=== PATIENT | male | born 1960 | race African-American/Black ===

== ENCOUNTER → 2016-05-06 | Outpatient (CLI) | payer OTHER ==
--- NOTE | 2016-05-06 09:48 | RAD ---
EXAM DESCRIPTION: Chest,2 Views CLINICAL HISTORY: 55 years,Male,R/O TB COMPARISON: April 12, 2013 FINDINGS: There are no consolidations. No effusions. No pneumothoraces. No nodules. Bony elements unremarkable for age. IMPRESSION: Unremarkable chest for age stable Electronically signed by: Suman Feliciano MD 05/06/2016 9:48 AM CDT
== END | disposition home or self-care (01) ==
LOC: RAD 09:05
DX: R76.11 Nonspecific reaction to tuberculin skin test without active tuberculosis (principal)

== ENCOUNTER 2016-07-06 11:13 | Emergency (ER) | payer SELFPAY ==
[2016-07-06 11:31] VITALS: TEMP 97.6
--- NOTE | 2016-07-06 11:41 | ED.PDOC ---
History of Present Illness - General Chief Complaint: Dental/Mouth Stated Complaint: dental pain Time Seen by Provider: 07/06/16 11:39 Source: patient Exam Limitations: no limitations - History of Present Illness Initial Comments: Deuce Henry 55 y/o male stated that his upper part of gums hurting the last 3 days from his bad teeth.No history of trauma,pain on chewing,no dysphagia. Timing/Duration: other - 3 adys ago Severity: moderate EENT Location: dental Prearrival Treatment: no prearrival treatment Improving Factors: nothing Worsening Factors: eating Associated Symptoms: tooth pain Allergies/Adverse Reactions: Allergies NO KNOWN ALLERGY Allergy (Verified 07/06/16 11:31) Home Medications: Ambulatory Orders Docusate Sodium [Colace Cap] 100 mg PO BID #30 cap 09/23/14 Ferrous Sulfate 325 mg PO BID #30 tab 09/23/14 Acetaminophen W/ Codeine [Tylenol W/ CODEINE #3] 1 - 2 ea PO Q4H PRN #20 Cyclobenzaprine HCl [Flexeril] 10 mg PO TID #15 tab 10/29/14 Naproxen [Naprosyn] 500 mg PO BID #20 tab 10/29/14 Acetamin W/Cod #3 Tab [Tylenol w/CODEINE #3] 1 ea PO Q6HRS PRN #10 tab 07/06/16 Clindamycin HCl 300 mg PO BID #30 cap 07/06/16 Review of Systems - Review of Systems Constitutional: States: no symptoms reported EENTM: States: see HPI Respiratory: States: no symptoms reported Cardiology: States: no symptoms reported Gastrointestinal/Abdominal: States: no symptoms reported Genitourinary: States: no symptoms reported Musculoskeletal: States: no symptoms reported Skin: States: no symptoms reported Neurological: States: no symptoms reported Endocrine: States: no symptoms reported Hematologic/Lymphatic: States: no symptoms reported Past Medical History (General) - Patient Medical History Hx Seizures: No Hx Stroke: No Hx Dementia: No Hx Asthma: No Hx of COPD: No Hx Cardiac Disorders: No Hx Congestive Heart Failure: No Hx Pacemaker: No Hx Hypertension: Yes Hx Thyroid Disease: No Hx Diabetes: No Hx Gastroesophageal Reflux: No Hx Renal Disease: No Surgical History: other - hernia repair in childhood - Vaccination History Hx Tetanus, Diphtheria Vaccination: Yes Hx Influenza Vaccination: No Hx Pneumococcal Vaccination: No - Social History Hx Tobacco Use: Yes Hx Alcohol Use: Yes Hx Substance Use: Yes - occasional marijuana Hx Substance Use Treatment: No Hx Depression: No - Activities of Daily Living Patient Lives Alone: No - family Hospice Agency (if applicable):: None - Female History Patient is a Female of Child Bearing Age (10 -59 yrs old): No Family Medical History - Family History Mother Family History: No Known Living Status: Still Living Hx Family Hypertension: Yes - parents Hx Cardiac Disease: Yes - parents Hx Family;Other: mom-Brain aneurysm Physical Exam - Physical Exam General Appearance: Alert, Anxious, No apparent distress Eye Exam: bilateral normal Ear Exam: bilateral ear: auricle normal, canal normal, TM normal Nasal Exam: normal inspection Throat Exam: pharynx normal, dental tenderness - left upper molars with dental decays Neck: non-tender, full range of motion, supple Cardiovascular/Respiratory: regular rate, rhythm, no M/R/G, normal peripheral pulses, normal breath sounds Abdominal Exam: non-tender, no organomegaly Neurologic: no motor/sensory deficits, alert, normal mood/affect, oriented x 3 Skin Exam: normal color, warm/dry Departure - Departure Clinical Impression: Pain due to dental caries, Complex dental caries Time of Disposition: 11:59 Disposition: Discharge to Home or Self Care Condition: Fair Departure Forms: ED Discharge - Pt. Copy, Patient Portal Self Enrollment Instructions: DI for Tooth Decay, DI for Dental Pain Diet: other - SOFT DIET ONLY UNTIL BETTER Prescriptions: Acetamin W/Cod #3 Tab [Tylenol w/CODEINE #3] 1 ea PO Q6HRS PRN #10 tab PRN Reason: Pain Clindamycin HCl 300 mg PO BID #30 cap Home Medications: Ambulatory Orders Docusate Sodium [Colace Cap] 100 mg PO BID #30 cap 09/23/14 Ferrous Sulfate 325 mg PO BID #30 tab 09/23/14 Acetaminophen W/ Codeine [Tylenol W/ CODEINE #3] 1 - 2 ea PO Q4H PRN #20 Cyclobenzaprine HCl [Flexeril] 10 mg PO TID #15 tab 10/29/14 Naproxen [Naprosyn] 500 mg PO BID #20 tab 10/29/14 Acetamin W/Cod #3 Tab [Tylenol w/CODEINE #3] 1 ea PO Q6HRS PRN #10 tab 07/06/16 Clindamycin HCl 300 mg PO BID #30 cap 07/06/16 Additional Instructions: MAKE AN APPOINTMENT WITH YOU DENTIST SOON POSSIBLE CALL FOR APPOINTMENT
[2016-07-06] MEDS ORDERED: CLINDAMYCIN PHOSPHATE 150 MG/ML VIAL IM ONE (11:55)
[2016-07-06] MEDS ORDERED: CLINDAMYCIN HCL CAP 150 MG CAP PO ONE (11:55)
[2016-07-06] MEDS ORDERED: HYDROcodone 10MG/APAP 325MG 1 EA TAB PO ONE (11:55)
[2016-07-06] MEDS ORDERED: TETANUS,DIPHTHERIA,PERTUSSIS 1 EA SYG IM ONE (11:55)
[2016-07-06 12:27] VITALS: BP 139/85; O2SAT 95
== END 2016-07-06 12:27 | disposition home or self-care (01) ==
LOC: ER 11:13
DX: K02.9 Dental caries, unspecified (principal); I10 Essential (primary) hypertension; Z23 Encounter for immunization; Z87.891 Personal history of nicotine dependence; Z79.899 Other long term (current) drug therapy

== ENCOUNTER → 2018-09-13 | Outpatient (CLI) | payer OTHER ==
--- NOTE | 2018-09-14 10:06 | RAD ---
EXAM DESCRIPTION: Chest,2 Views CLINICAL HISTORY: TB SCREEN COMPARISON: 05/06/2016 TECHNIQUE: PA/lateral FINDINGS: The lungs are clear. No focal consolidation, significant pneumothorax or pleural effusion. The heart is normal in size. No acute osseous abnormality. IMPRESSION: 1. No acute cardiopulmonary process. Electronically signed by: Efren Swan DO 09/14/2018 10:04 AM CDT
== END ==
LOC: RAD 13:28
PROVIDERS: ATTEND Nurse Practitioner Family
DX: R76.11 Nonspecific reaction to tuberculin skin test without active tuberculosis (principal)

== ENCOUNTER 2019-08-26 10:49 | Emergency (ER) | payer SELFPAY ==
[2019-08-26 11:19] VITALS: BP 117/73; TEMP 98.7; O2SAT 98
--- NOTE | 2019-08-26 11:21 | ED.PDOC ---
History of Present Illness - General Chief Complaint: Eye Problems Stated Complaint: scatching pain right eye Time Seen by Provider: 08/26/19 11:18 Source: patient, family Exam Limitations: no limitations - History of Present Illness Initial Comments: Pt says his right eye has been itchy for the past 3 days. 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 Pt has slight sensitivity to light, minimal STEVE. Pt denies cough, congestion, runny nose, fever. Pt says he has mild purulent d/c from eye this morning. Pt says he has no PCP and has no eye doctor. 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 Allergies/Adverse Reactions: Allergies NO KNOWN ALLERGY Allergy (Verified 08/26/19 11:09) Home Medications: Ambulatory Orders Polymyxin B-Trimethoprim [Polytrim] 1 karen OP TID #1 karen 08/26/19 Review of Systems - Review of Systems Constitutional: States: no symptoms reported. Denies: chills, diaphoresis, fever EENTM: States: eye pain - minimal, blurred vision. Denies: tearing, double vision, ear pain, ear discharge, nose pain, nose congestion, throat pain, throat swelling, mouth pain, mouth swelling Respiratory: States: no symptoms reported. Denies: cough, short of breath Cardiology: States: no symptoms reported. Denies: chest pain, edema Gastrointestinal/Abdominal: States: no symptoms reported. Denies: abdominal pain, constipation, diarrhea, nausea Musculoskeletal: States: no symptoms reported Skin: States: no symptoms reported Neurological: States: no symptoms reported Past Medical History (General) - Patient Medical History Hx Seizures: No Hx Stroke: No Hx Dementia: No Hx Asthma: No Hx of COPD: No Hx Cardiac Disorders: No Hx Congestive Heart Failure: No Hx Pacemaker: No Hx Hypertension: Yes Hx Thyroid Disease: No Hx Diabetes: No Hx Gastroesophageal Reflux: No Hx Renal Disease: No Hx Cancer: No Hx Hepatitis C: No - Vaccination History Hx Tetanus, Diphtheria Vaccination: Yes Hx Influenza Vaccination: No Hx Pneumococcal Vaccination: No - Social History Hx Tobacco Use: Yes Hx Alcohol Use: Yes Hx Substance Use: Yes - occasional marijuana Hx Substance Use Treatment: No Hx Depression: No Family Medical History - Family History Mother Family History: No Known Living Status: Still Living Hx Family Hypertension: Yes - parents Hx Cardiac Disease: Yes - parents Hx Family;Other: mom-Brain aneurysm Physical Exam - Physical Exam General Appearance: Alert, Comfortable, No apparent distress Eye Exam: right normal, left abnormal pupil - chronic; left eye blindness Nasal Exam: normal inspection, discharge Neck: non-tender, full range of motion, supple Skin Exam: normal color Progress - Progress Progress: 08/26/19 11:25 Minimal conjunctival injection on right. EOMI, PERRLA, no purulent d/c. Pterygium present. No foreign body. 08/26/19 11:33 I stressed very urgent need to find PCP and photovoltaic subcontractor. 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 Departure - Departure Clinical Impression: Conjunctivitis, Blindness of left eye, Pterygium of both eyes Time of Disposition: 11:26 Disposition: Discharge to Home or Self Care Condition: Excellent Departure Forms: ED Discharge - Pt. Copy, Patient Portal Self Enrollment Instructions: DI for Eye Pain Prescriptions: Polymyxin B-Trimethoprim [Polytrim] 1 karen OP TID #1 karen Home Medications: Ambulatory Orders Polymyxin B-Trimethoprim [Polytrim] 1 karen OP TID #1 karen 08/26/19
== END 2019-08-26 11:37 | disposition home or self-care (01) ==
LOC: ER 10:49
DX: H10.9 Unspecified conjunctivitis (principal); H54.40 Blindness, one eye, unspecified eye; I10 Essential (primary) hypertension; F17.200 Nicotine dependence, unspecified, uncomplicated